=== PATIENT | female | born 1995 | race Caucasian/White ===

== ENCOUNTER 2020-11-19 12:55 | Outpatient (REF) | payer OTHER, SELFPAY | END 2020-11-19 12:56 | disposition home or self-care (01) | LOC: HO.LAB 12:55 | PROVIDERS: Visit Provider Internal Medicine | DX: Z20.822 Contact with and (suspected) exposure to COVID-19 (principal) | CPT/HCPCS: C9803; U0003; U0005 ==

== ENCOUNTER 2021-02-13 07:36 | Emergency (ER) | payer OTHER, SELFPAY ==
--- NOTE | ~2021-02-13 | XR_ITS ---
EXAMINATION: XR ANKLE, LEFT CLINICAL INFORMATION: Ankle injury COMPARISON: None TECHNIQUE: AP, lateral, and mortise views of the left ankle. FINDINGS: There is no evidence of acute fracture or dislocation of the left ankle. Left ankle mortise intact. No significant soft tissue swelling is seen. XR/XR ankle LT min 3V IMPRESSION: No bony abnormality of the left ankle identified.
[2021-02-13 07:40] VITALS: BP 134/68; PULSE 107; RESP 17; TEMP 36.6; O2SAT 98; BMI 25.8
--- NOTE | 2021-02-13 08:01 | ED.LOWEXIN ---
HPI - Extremity Injury (Lower) General Chief Complaint: Extremity Injury, Lower Stated Complaint: l ankle inj Time Seen by Provider: 02/13/21 07:37 Source: patient Mode of arrival: ambulatory Limitations: no limitations History of Present Illness complaint: ankle injury Onset (ago): minute(s) Injury: Left: ankle Type of Injury: blunt Place: home Severity: moderate Relieving factors: nothing Exacerbating factors: weight bearing, movement and palpation Context: fall (missed a step) Associated symptoms: swelling and tingling Other symptoms: none Related Data Allergies Allergy/AdvReac Type Severity Reaction Status Date / Time No Known Allergies Allergy Unverified 11/02/19 19:50 [No Known Allergies*] Review of Systems Review of Systems: Constitutional : No Fever, No Chills ENT/Mouth : No Ear Pain, No Hoarseness, No sore throat Eyes: No Eye Pain, No Swelling, No Redness, No Foreign Body Cardiovascular : No Chest Pain, No SOB Respiratory : No Cough, No Dyspnea Gastrointestinal : No Nausea, No Vomiting, No Diarrhea, No abdominal Pain Genitourinary : No Dysuria, No Hematuria Musculoskeletal : positive joint pain, No Myalgias, No Joint Swelling Skin : No Skin lacerations, No rash Neuro : No Weakness, No Numbness, No Loss of Consciousness, No Dizziness, No Headache PMFSH Past Medical History Medical History (Updated 02/13/21 @ 08:13 by Monica Mccoy DO) No known health problems Social History Social History (Updated 02/13/21 @ 08:10 by Monica Mccoy DO) Patient Tobacco Use Status: Never used Tobacco Advance Directives: No Advance Directives Information Provided: Yes Patient : No Physical Exam Vital Signs: Vital Signs: Last Vital Signs Temp 98 F 02/13/21 07:40 Pulse 107 H 02/13/21 07:40 Resp 17 02/13/21 07:40 BP 134/68 02/13/21 07:40 Pulse Ox 98 02/13/21 07:40 BMI result Body Mass Index 25.8 Appearance: Alert. Oriented X3. No acute distress. Eyes: Pupils equal, round and reactive to light. ENT: Pharynx normal. Neck: Normal inspection. Neck supple. CVS: Pulses normal. Respiratory: No respiratory distress. Abdomen: Soft and nontender. Skin: Skin warm and dry. Normal skin color. Extremities: No lower extremity edema. L ankle distal NV intact mild lateral malleolus ttp mild swelling on anterior portion of lower ankle ROM intact, no prox fibula ttp Neuro: Oriented X 3. No motor deficit. No sensory deficit. MDM - Extremity Injury (Lower) MDM Narrative Medical decision making narrative: 25 yo female with L ankle injury after missing a step - no proximal injury patient is NV intact at this time will need xray of ankle - anticipate strain Procedures Orthopedic Splinting/Casting Injury #1: Side: left Lower Extremity Injury Location: ankle Lower Extremity Immobilizer: [employer] Discharge Plan Discharge Clinical Impression: Ankle sprain and strain Patient Disposition: Home, Self-Care Instructions: Ankle Sprain (ED), Ankle Stirrup Splint (ED), R.I.C.E. Treatment (ED) Additional Instructions: return to ED for any worsening symptoms or concerns Referrals: Physician,None [Primary Care Provider] - 5 days (family doctor is not better in 5 days) Stand Alone Forms: Work/School Release
== END 2021-02-13 08:49 | disposition home or self-care (01) ==
PROVIDERS: Emergency Provider Emergency Medicine
DX: S93.402A Sprain of unspecified ligament of left ankle, initial encounter (principal); M25.572 Pain in left ankle and joints of left foot; X58.XXXA Exposure to other specified factors, initial encounter; Y93.9 Activity, unspecified; Y92.9 Unspecified place or not applicable; Y99.9 Unspecified external cause status
CPT/HCPCS: 29515; 73610; 99283